=== PATIENT | female | born 1935 | race African-American/Black ===

== ENCOUNTER 2016-09-09 08:17 | Emergency (ER) | payer MEDICARE, MEDICAID ==
[~2016-09-09] VITALS: Ht 170.2 cm; Wt 55.0 kg
[~2016-09-09 08:17] MED LIST: AMLO10TA80 PO; ASPI-1035 PO; ATOR10TA69 PO; DOCU-138 PO; LOSA100T14 PO; MEMA10TA11 PO; MIRT15TA PO; MONT10TA21 PO; TRAM50TA3 PO
[2016-09-09] MEDS ORDERED: ONDANSETRON HCL 4MG/2ML VIAL IV STA (08:52)
[2016-09-09] MEDS ORDERED: MORPHINE SULFATE 4 MG/ML CPJ (NOT FOR IM USE) IV STA (08:52)
[2016-09-09 09:26] LABS: BASOPHILS % 2.7 % (0.0-2.0); EOSINOPHILS % 7.5 % (0.0-5.0); HEMATOCRIT. 39.5 % (36.0-48.0); HEMOGLOBIN. 13.4 g/dL (12.0-16.0); LYMPHOCYTES % 31.4 % (20.0-50.0); MEAN CORPUSCULAR HEMOGLOBIN 30.4 pg (28.0-32.0); MEAN CORPUSCULAR VOLUME 89.6 fL (81.0-99.0); MEAN PLATELET VOLUME 9.1 fl (7.4-10.4); MONOCYTES % 8.2 % (2.0-8.0); NEUTROPHILS % 50.2 % (40.0-76.0); PLATELET 284 x1000/uL (130-400); RED CELL DISTRIBUTION WIDTH 16.5 % (11.6-14.6)
[2016-09-09 09:31] LABS: INR 1.1; PROTHROMBIN TIME 11.8 sec
[2016-09-09 09:36] LABS: CARBON DIOXIDE 26 mEq/L (21-32); CHLORIDE 105 mEq/L (98-107)
[2016-09-09] MEDS ORDERED: SODIUM CHLORIDE 0.9% 500 ML IV ONE (10:03)
[2016-09-09 11:52] LABS: CLARITY URINE CLEAR (CLEAR); COLOR URINE DARK YELLOW (YELLOW); GLUCOSE URINE NEGATIVE (NEGATIVE); KETONES URINE TRACE (NEGATIVE); LEUKOCYTE ESTERASE URINE 1+ (NEGATIVE); NITRITE URINE NEGATIVE (NEGATIVE); OCCULT BLOOD URINE NEGATIVE (NEGATIVE); PROTEIN URINE 1+ (NEGATIVE)
[2016-09-09] MEDS ORDERED: KETOROLAC 30MG/ML VIAL IV ONE (13:15)
[2016-09-09] MEDS ORDERED: CEFTRIAXONE 1 G PREMIX 50 ML IV ONE (13:15)
[2016-09-09 15:15] VITALS: BP 155/69
[2016-09-12] MEDS ORDERED: AMLO10TA80 PO (20:13)
[2016-09-12] MEDS ORDERED: ASPI-1035 PO (20:17)
== END 2016-09-09 15:17 | disposition home or self-care (01) ==
LOC: ER 08:18
DX: N39.0 Urinary tract infection, site not specified (principal); R10.30 Lower abdominal pain, unspecified; I10 Essential (primary) hypertension
CPT/HCPCS: 36415; 74176; 80053; 81001; 83690; 85025; 85610; 87086; 93005; 96361; 96365; 96375; 99285; J0696; J1885; J2270; J2405; J7040; J7030

== ENCOUNTER 2016-12-11 14:38 | Emergency (ER) | payer MEDICARE, MEDICAID ==
[~2016-12-11] VITALS: Ht 165.1 cm; Wt 65.0 kg
[~2016-12-11 14:38] MED LIST changes: -ASPI-1035 PO; +ASPI-1159 PO
[2016-12-11 17:20] LABS: BASOPHILS % 1.9 % (0.0-2.0); EOSINOPHILS % 2.8 % (0.0-5.0); HEMOGLOBIN. 12.8 g/dL (12.0-16.0); LYMPHOCYTES % 21.1 % (20.0-50.0); MEAN CORPUSCULAR VOLUME 92.1 fL (81.0-99.0); MEAN PLATELET VOLUME 9.1 fl (7.4-10.4); MONOCYTES % 9.9 % (2.0-8.0); NEUTROPHILS % 64.3 % (40.0-76.0); PLATELET 263 x1000/uL (130-400); RED BLOOD CELL COUNT 4.12 mill/uL (4.2-5.4); RED CELL DISTRIBUTION WIDTH 14.8 % (11.6-14.6)
[2016-12-11 17:27] LABS: INR 1.2; PROTHROMBIN TIME 12.3 sec (9.4-11.6)
[2016-12-11 17:37] LABS: CARBON DIOXIDE 26 mEq/L (21-32); CHLORIDE 104 mEq/L (98-107)
[2016-12-11] MEDS ORDERED: SODIUM CHLORIDE 0.9% 1,000 ML IV ONE (18:54)
[2016-12-11 19:50] LABS: CLARITY URINE CLEAR (CLEAR); COLOR URINE DARK YELLOW (YELLOW); GLUCOSE URINE NEGATIVE (NEGATIVE); KETONES URINE TRACE (NEGATIVE); LEUKOCYTE ESTERASE URINE 2+ (NEGATIVE); NITRITE URINE NEGATIVE (NEGATIVE); OCCULT BLOOD URINE NEGATIVE (NEGATIVE); PH URINE 5.5 (4.5-8.0); PROTEIN URINE 1+ (NEGATIVE); SPECIFIC GRAVITY URINE 1.018 (1.005-1.030)
[2016-12-11] MEDS ORDERED: CEFTRIAXONE 1 G PREMIX 50 ML IV ONE (20:15)
[2016-12-11 21:37] VITALS: BP 139/72
== END 2016-12-11 22:10 | disposition home or self-care (01) ==
LOC: ER 15:31 → CMPBEDREQ 22:07 → ER 22:10
DX: N39.0 Urinary tract infection, site not specified (principal); E86.0 Dehydration; J44.9 Chronic obstructive pulmonary disease, unspecified; I11.9 Hypertensive heart disease without heart failure; Z79.82 Long term (current) use of aspirin
CPT/HCPCS: 36415; 71010; 80053; 81001; 83605; 85025; 85610; 87040; 87086; 93005; 96361; 96365; 96366; 99285; J0696; J7030